=== PATIENT | female | born 1955 ===

== ENCOUNTER → 2022-07-29 | Outpatient (CLI) | payer MEDICARE, BC | LOC: PLD 07:19 → LAB SHORT 07:19 | DX: L08.9 Local infection of the skin and subcutaneous tissue, unspecified (principal); L98.8 Other specified disorders of the skin and subcutaneous tissue | CPT/HCPCS: 88312 ==

== ENCOUNTER → 2022-07-29 | Outpatient (CLI) | payer SELFPAY | END | disposition home or self-care (01) | LOC: LAB SHORT 10:30 | DX: R21 Rash and other nonspecific skin eruption (principal); L57.8 Other skin changes due to chronic exposure to nonionizing radiation; L82.1 Other seborrheic keratosis; D22.72 Melanocytic nevi of left lower limb, including hip; D18.01 Hemangioma of skin and subcutaneous tissue; Z71.89 Other specified counseling | CPT/HCPCS: 87070; 87205 ==